=== PATIENT | female | born 1985 | race Caucasian/White ===

== ENCOUNTER 2018-12-15 17:27 | Emergency (ER) | payer OTHER ==
[~2018-12-15] VITALS: Ht 172.7 cm; Wt 68.0 kg
[~2018-12-15 17:27] MED LIST: HYDROCODONE-AP1 EAC6 PO; MACROBID 100 M100 M2 PO; NAPROSYN500 MG PO; ZOFRAN4 MG PO
[2018-12-15 18:16] LABS: URINE BILIRUBIN NEGATIVE (Negative); URINE BLOOD NEGATIVE (Negative); URINE CLARITY CLEAR; URINE COLOR YELLOW; URINE GLUCOSE-RANDOM NEGATIVE (Negative); URINE KETONES NEGATIVE (Negative); URINE LEUKOCYTES-REFLEX 2+ (Negative); URINE NITRITE-REFLEX NEGATIVE (Negative); URINE PROTEIN NEGATIVE (Negative); URINE UROBILINOGEN 0.2 E.U./dl (0.2-1.0)
[2018-12-15 18:22] LABS: CASTS None Seen /LPF (None Seen); MUCUS None Seen strn/LPF (None Seen); SQUAMOUS >10 Many /LPF (0-3); URINE WBC-REFLEX 6-15 Few /HPF (0-5)
[2018-12-15 18:23] LABS: BACTERIA-REFLEX 1-9 Few /HPF (None Seen); URINE RBC None Seen /HPF (0-2)
[2018-12-15 18:24] LABS: CRYSTALS None Seen /LPF (None Seen)
[2018-12-15] MEDS ORDERED: BACTRIM DS TAB1 EACH PO (18:27)
[2018-12-15] MEDS ORDERED: NORCO 5-325 TA1 EACH PO (18:27)
[2018-12-15] MEDS ORDERED: ACYCLOVIR 200200 MG PO (18:27)
[2018-12-15 18:40] VITALS: BP 124/98
== END 2018-12-15 18:41 | disposition home or self-care (01) ==
LOC: M.ERS 17:27
PROVIDERS: Nurse Practitioner Family
DX: B02.9 Zoster without complications (principal); N39.0 Urinary tract infection, site not specified; Z98.890 Other specified postprocedural states